=== PATIENT | male | born 1980 | race Caucasian/White ===

== ENCOUNTER → 2017-08-01 | Outpatient (CLI) | payer OTHER ==
[~2017-08-01] MED LIST: E-Z-GAS II EFFERVESCENT PACKET (SODIUM BICARB./CITRIC ACID/SIMETHICONE) As Ordered ONE; E-Z-HD 98% w/w 340GM SUSP BTL As Ordered ONE; E-Z-PAQUE 96% w/w SUSP 176GM BTL As Ordered ONE
--- NOTE | 2017-08-01 19:28 | REP ---
Esophagram The procedure was performed under the direct supervision of Dr. Johnson. The images were reviewed with Dr. Johnson. 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 The superior mediastinal structures are midline. The heart size is within normal limits. The lungs are clear. Liquid barium and gas producing granules were given in the erect position as well as liquid barium in the prone oblique positions in order to perform a double contrast esophagram examination. The oral and pharyngeal stages of deglutition are unremarkable. Esophageal transport is prompt and efficient and there is no esophagitis, stricture, mucosal ring or hiatal hernia. Gastroesophageal reflux is not demonstrated on this examination. Impression: Essentially unremarkable double contrast esophagram examination. 58 seconds of fluoro time was utilized for this procedure. Reviewed by DYLAN Tobar 08/01/2017 02:48 PSigned by Domenico Johnson MD 08/01/2017 07:19 P
== END ==
LOC: M RAD 08:35
PROVIDERS: ATTEND Physician Assistant Medical
DX: R13.10 Dysphagia, unspecified (principal); R12 Heartburn

== ENCOUNTER 2017-08-22 14:08 | Outpatient (CLI) | payer OTHER ==
[~2017-08-22] VITALS: Ht 190.5 cm; Wt 93.0 kg
[2017-08-22] MEDS ORDERED: NS 1,000 ML IV ONE (14:45)
[2017-08-22] MEDS ORDERED: LIDOCAINE 2% INJ 100 MG/5 ML SDV (FOR ANES.) As Ordered ONE (14:58)
[2017-08-22] MEDS ORDERED: PROPOFOL 200 MG/20 ML VIAL As Ordered ONE (14:58)
--- NOTE | 2017-08-22 15:13 | ROOR ---
Patient Name: Chuy Godoy Procedure Date: 08/22/2017 10:12 AM Date of : 1980 Age: 37 Room: [facility] Gender: Male Note Status: Finalized Procedure: Upper GI endoscopy Indications: Dysphagia Providers: Rosendo LACY MD Referring MD: REGGIE PAREDES MD Requesting Provider: Medicines: Monitored Anesthesia Care Complications: No immediate complications. Procedure: Pre-Anesthesia Assessment: - The heart rate, respiratory rate, oxygen saturations, blood pressure, adequacy of pulmonary ventilation, and response to care were monitored throughout the procedure. The Endoscope was introduced through the mouth, and advanced to the second part of duodenum. The upper GI endoscopy was accomplished without difficulty. The patient tolerated the procedure well. Findings: Mucosal changes including longitudinal furrows, small-caliber esophagus and congestion (edema) were found in the entire esophagus. Biopsies were taken with a cold forceps for histology. There is no endoscopic evidence of stenosis or stricture in the entire esophagus. The entire examined stomach was normal. The examined duodenum was normal. Impression: - Esophageal mucosal changes suggestive of eosinophilic esophagitis. Biopsied. - Normal stomach. - Normal examined duodenum. Recommendation: - Use Protonix (pantoprazole) 40 mg TWICE a day. - (the script was sent to your pharmacy on file) - Telephone endoscopist for pathology results in 2 weeks. - (depending on biopsies, additional testing/evaluation may be necessary.) Rosendo Lacy MD Rosendo LACY MD 08/22/2017 3:12:49 PM This report has been signed electronically. Number of Addenda: 0 Note Initiated On: 08/22/2017 10:12 AM Estimated Blood Loss: Estimated blood loss: none.
[2017-08-22 15:30] VITALS: BP 110/71
== END 2017-08-22 15:35 | disposition home or self-care (01) ==
LOC: M OPP 14:08
PROVIDERS: ATTEND Internal Medicine Gastroenterology
DX: R13.10 Dysphagia, unspecified (principal); K22.8 Other specified diseases of esophagus; R12 Heartburn; M54.89 Other dorsalgia; Z87.891 Personal history of nicotine dependence; Z80.42 Family history of malignant neoplasm of prostate; Z80.8 Family history of malignant neoplasm of other organs or systems

== ENCOUNTER 2018-03-21 03:58 | Emergency (ER) | payer OTHER ==
[2018-03-21] MEDS: GI COCKTAIL 50ML BTL(HYOSCYAMINE/MAALOX/LIDOCAINE VISCOUS)(1:3:1) PO (04:31)
[2018-03-21] MEDS: MORPHINE 10 MG/ML 1ML VIAL (J2270) IV (04:31)
[2018-03-21 04:37] LABS: BASO % 0.4 % (0.0-1.0); EOS # 1.1 10^3/uL (0.0-0.50); EOS % 15.3 % (0.0-3.0); HEMATOCRIT 42.1 % (42.0-52.0); HEMOGLOBIN 14.5 g/dl (13.5-17.5); IMMATURE GRANULOCYTE % 0.1 % (0-3.0); LYMPH # 2.6 10^3/uL (1.5-4.5); LYMPH % 36.8 % (24.0-44.0); MEAN CORPUSCULAR HEMOGLOBIN 29.8 pg (27.0-33.0); MEAN CORPUSCULAR HGB CONC 34.4 g/dl (32.0-36.5); MEAN CORPUSCULAR VOLUME 86.4 fl (80.0-96.0); MONO # 0.4 10^3/uL (0.0-0.8); MONO % 6.3 % (0.0-5.0); NEUTROPHILS # 2.9 10^3/uL (1.8-7.7); NEUTROPHILS % 41.1 % (36.0-66.0); PLATELET COUNT, AUTOMATED 274 10^3/uL (150-450); RED BLOOD COUNT 4.87 10^6/uL (4.30-6.10); RED CELL DISTRIBUTION WIDTH 12.4 % (11.5-14.5)
[2018-03-21 04:58] LABS: LACTIC ACID SEPSIS PROTOCOL 1.3 MMOL/L (0.4-2.0)
[2018-03-21 05:01] LABS: ALBUMIN 4.2 GM/DL (3.2-5.2); ALBUMIN/GLOBULIN RATIO 1.14 (1.00-1.93); ALKALINE PHOSPHATASE 73 U/L (45-117); ALT/SGPT 30 U/L (12-78); ANION GAP 6 MEQ/L (8-16); AST/SGOT 18 U/L (7-37); BILIRUBIN,DIRECT < 0.1 MG/DL (0.0-0.2); BILIRUBIN,TOTAL 0.2 MG/DL (0.2-1.0); BLOOD UREA NITROGEN 11 MG/DL (7-18); CALCIUM LEVEL 8.7 MG/DL (8.5-10.1); CARBON DIOXIDE LEVEL 30 MEQ/L (21-32); CHLORIDE LEVEL 108 MEQ/L (98-107); CREATININE FOR GFR 1.15 MG/DL (0.70-1.30); GLOMERULAR FILTRATION RATE > 60.0 (>60); GLUCOSE, FASTING 101 MG/DL (70-100); LIPASE 150 U/L (73-393); POTASSIUM SERUM 3.7 MEQ/L (3.5-5.1); SODIUM LEVEL 144 MEQ/L (136-145); TOTAL PROTEIN 7.9 GM/DL (6.4-8.2)
[2018-03-21] MEDS: NS 1,000 ML IV (05:15)
[2018-03-21] MEDS: GASTROGRAFIN SOLUTION 30ML PO ×2 (05:40→06:10)
[2018-03-21] MEDS: SUCRALFATE 1 GM TAB PO (06:45)
[2018-03-21] MEDS: PANTOPRAZOLE 40MG INJ (PROTONIX) (C9113) IV (06:46)
== END 2018-03-21 06:51 | disposition home or self-care (01) ==
LOC: M ED 03:58
DX: K29.70 Gastritis, unspecified, without bleeding (principal); K29.80 Duodenitis without bleeding; Z87.891 Personal history of nicotine dependence
CPT/HCPCS: C9113